=== PATIENT | male | born 1975 | race Caucasian/White ===

== ENCOUNTER 2017-06-27 18:18 | Emergency (ER) | payer MEDICAID ==
--- NOTE | 2017-06-27 18:23 | EDPHY ---
H & P Time Seen by Provider: 06/27/17 18:19 HPI/ROS: 42 yo M presents c/o left sided abdominal pain since last night. No associated symptoms. He denies nausea, vomiting, diarrhea. No fever or chills. No chest pain and no shortness of breath. He has fmily hx of CAD, and he himself has a hx of elevated triglycerides. Review of systems As per HPI General no fever no chills no weakness HEENT no eye pain no eye discharge. No eye redness, no sore throat Respiratory no cough, no shortness of breath Cardiac no chest pain, no peripheral edema GI positive left-sided abdominal pain, no diarrhea, no constipation, no nausea, no vomiting no flank pain, no hematuria, no dysuria Musculoskeletal no myalgias, no joint pain Heme no easy bruising, no easy bleeding Endo no polyuria, no polydipsia Skin no rashes, no pruritus Neuro no syncope, no dizziness, no headaches Psych is no suicidal ideation, no homicidal ideation Past Medical/Surgical History: kidney stones hypertriglyceridemia no prior abdominal surgeries Family history Coronary artery disease-father Social History: Quit drinking alcohol 1 month ago Denies drug use Smoking Status: Former smoker Physical Exam: 42-year-old male alert and oriented no acute distress nontoxic appearance HEENT atraumatic normocephalic, extraocular muscles intact, anicteric Oropharynx negative for erythema negative exudate, tolerating her own secretions Neck supple no meningismus Lungs clear to auscultation bilaterally Heart regular rate and rhythm without murmur rub or gallop Abdomen nondistended normoactive bowel sounds , left upper middle and lower quadrant tenderness to palpation, no guarding no rebound no pulsatile mass Back no CVA tenderness, no step-offs, no spinal tenderness Extremities no cyanosis clubbing or edema Neuro alert and oriented, no focal deficits Constitutional: Initial Vital Signs Temperature (C) 36.6 C 06/27/17 18:26 Heart Rate 56 L 06/27/17 18:26 Respiratory Rate 18 06/27/17 18:26 Blood Pressure 150/80 H 06/27/17 18:26 O2 Sat (%) 97 06/27/17 18:26 O2 Delivery Mode Room Air Allergies/Adverse Reactions: venom-honey bee [bee venom (honey bee)] Allergy (Severe, Verified 07/20/16 16:46 ) Swelling/neck,face,throat Home Medications: Medication Instructions Recorded NK [No Known Home Meds] 06/27/17 Medical Decision Making - Diagnostics Imaging Results: Imaging Impressions Abdomen CT 06/27/17 18:39 Impression: 1. Mild haziness around the pancreatic tail suggestive of mild pancreatitis 2. No CT evidence of appendicitis, abscess or diverticulitis. 3. Nonobstructive 2 mm calculus upper pole right kidney. Findings discussed with Rashida Alvarado MD at 20:10 hour, 06/27/2017. ED Course/Re-evaluation: Pt seen and evaluted for left sided abdominal pain. 12 lead EKG: Indication: [left upper quadrant abdominal pain] Rhythm: [sinus bradycardia] Gobler: [right axis deviation] Intervals: [normal] QRS: [normal] ST segments: [none] INTERPRETATION: [sinus bradycardia] The 12 lead EKG was interpreted by myself. CBC, CMP. lipase all wnl UA nml troponin neg ct scan with haziness at pancreatic tail, c/w pancreatitis Imp Mild pancreatitis- ie tolerating po, no lipase elevation, no WBC elevation Unknown etiology, pt with high triglycerides in the past, but only up to 400, generally over 800 is associated with pancratitis. Plan Home Bowel rest Per utd, may begin low residue, low fat, soft diet Advise follow up with pcp Dr Lynn in [place] Also advise return for fever, vomiting, or severe pain. Pt refusing pain medicines in ER or for home. Differential Diagnosis: Gastritis, peptic ulcer disease, diverticulitis, kidney stone, cholecystitis pancreatitis - Data Points Laboratory Results: Laboratory Results 06/27/17 18:50 06/27/17 18:50 06/27/17 06/27/17 06/27/17 20:10 18:50 18:50 WBC 8.93 10^3/uL 10^3/uL (3.80-9.50) RBC 5.24 10^6/uL 10^6/uL (4.40-6.38) Hgb 15.5 g/dL g/dL (13.7-17.5) Hct 42.8 % % (40.0-51.0) MCV 81.7 fL fL (81.5-99.8) MCH 29.6 pg pg (27.9-34.1) MCHC 36.2 g/dL g/dL (32.4-36.7) RDW 12.5 % % (11.5-15.2) Plt Count 221 10^3/uL 10^3/uL (150-400) MPV 11.7 fL fL (8.7-11.7) Neut % (Auto) 78.2 % H % (39.3-74.2) Lymph % (Auto) 16.3 % % (15.0-45.0) [place] % (Auto) 4.8 % % (4.5-13.0) Eos % (Auto) 0.2 % L % (0.6-7.6) Baso % (Auto) 0.3 % % (0.3-1.7) Nucleat RBC Rel Count 0.0 % % (0.0-0.2) Absolute Neuts (auto) 6.97 10^3/uL H 10^3/uL (1.70-6.50) Absolute Lymphs (auto) 1.46 10^3/uL 10^3/uL (1.00-3.00) Absolute Monos (auto) 0.43 10^3/uL 10^3/uL (0.30-0.80) Absolute Eos (auto) 0.02 10^3/uL L 10^3/uL (0.03-0.40) Absolute Basos (auto) 0.03 10^3/uL 10^3/uL (0.02-0.10) Absolute Nucleated RBC 0.00 10^3/uL 10^3/uL (0-0.01) Immature Gran % 0.2 % % (0.0-1.1) Immature Gran # 0.02 10^3/uL 10^3/uL (0.00-0.10) Sodium 140 mEq/L mEq/L (134-144) Potassium 4.2 mEq/L mEq/L (3.5-5.2) Chloride 103 mEq/L mEq/L (97-110) Carbon Dioxide 23 mEq/l mEq/l (22-31) Anion Gap 14 mEq/L mEq/L (8-16) BUN 13 mg/dL mg/dL (7-23) Creatinine 0.7 mg/dL mg/dL (0.7-1.3) Estimated GFR > 60 Glucose 90 mg/dL mg/dL (70-100) Calcium 9.7 mg/dL mg/dL (8.5-10.4) Total Bilirubin 0.8 mg/dL mg/dL (0.1-1.4) AST 21 IU/L IU/L (17-59) ALT 54 IU/L IU/L (21-72) Alkaline Phosphatase 55 IU/L IU/L (38-126) Troponin I Total Protein 7.1 g/dL g/dL (6.3-8.2) Albumin 4.5 g/dL g/dL (3.5-5.0) Lipase 121 IU/L IU/L (23-300) Urine Color YELLOW Urine Appearance CLEAR Urine pH 7.5 (5.0-7.5) Ur Specific [place] 1.010 (1.002-1.030) Urine Protein NEGATIVE (NEGATIVE) Urine Ketones 1+ H (NEGATIVE) Urine Blood NEGATIVE (NEGATIVE) Urine Nitrate NEGATIVE (NEGATIVE) Urine Bilirubin NEGATIVE (NEGATIVE) Urine Urobilinogen 0.2 EU EU (0.2-1.0) Ur Leukocyte Esterase NEGATIVE (NEGATIVE) Urine Glucose NEGATIVE (NEGATIVE) 06/27/17 18:50 WBC RBC Hgb Hct MCV MCH MCHC RDW Plt Count MPV Neut % (Auto) Lymph % (Auto) [place] % (Auto) Eos % (Auto) Baso % (Auto) Nucleat RBC Rel Count Absolute Neuts (auto) Absolute Lymphs (auto) Absolute Monos (auto) Absolute Eos (auto) Absolute Basos (auto) Absolute Nucleated RBC Immature Gran % Immature Gran # Sodium Potassium Chloride Carbon Dioxide Anion Gap BUN Creatinine Estimated GFR Glucose Calcium Total Bilirubin AST ALT Alkaline Phosphatase Troponin I < 0.012 ng/mL ng/mL (0.000-0.034) Total Protein Albumin Lipase Urine Color Urine Appearance Urine pH Ur Specific [place] Urine Protein Urine Ketones Urine Blood Urine Nitrate Urine Bilirubin Urine Urobilinogen Ur Leukocyte Esterase Urine Glucose Medications Given: Discontinued Medications Sodium Chloride (Ns) 1,000 mls @ 0 mls/hr IV ONCE ONE PRN Reason: Wide Open Stop: 06/27/17 18:51 Last Admin: 06/27/17 18:50 Dose: 1,000 mls Departure - Departure Disposition: Home, Routine, Self-Care Clinical Impression: Pancreatitis Condition: Good Instructions: Pancreatitis (ED) Referrals: NONE *PRIMARY CARE P,. [Primary Care Provider] - As per Instructions
[2017-06-27] MEDS: NS 1,000 ML IV ONE (18:50)
[2017-06-27] MEDS ORDERED: IOPAMIDOL (ISOVUE-300) 100 ML BTL ONE (18:54)
[2017-06-27 18:59] LABS: % IMMATURE GRANULYOCYTES 0.2 % (0.0-1.1); ABSOLUTE IMMATURE GRANULOCYTES 0.02 10^3/uL (0.00-0.10); ADD DIFF? NO; ADD MORPH? NO; ADD SCAN? NO; ATYPICAL LYMPHOCYTE FLAG 0 (0-99); FRAGMENT RBC FLAG 0 (0-99); HEMATOCRIT 42.8 % (40.0-51.0); HEMOGLOBIN 15.5 g/dL (13.7-17.5); LEFT SHIFT FLG 0 (0-99); LIPEMIA HEMOLYSIS FLAG 90 (0-99); MEAN CELL HEMOGLOBIN 29.6 pg (27.9-34.1); MEAN CELL HEMOGLOBIN CONCENTR. 36.2 g/dL (32.4-36.7); MEAN CELL VOLUME 81.7 fL (81.5-99.8); MEAN PLATELET VOLUME 11.7 fL (8.7-11.7); PLATELET CLUMPS FLAG 10 (0-99); PLATELET COUNT 221 10^3/uL (150-400); RED BLOOD CELL COUNT 5.24 10^6/uL (4.40-6.38); RED CELL DISTRIBUTION WIDTH 12.5 % (11.5-15.2)
--- NOTE | 2017-06-27 19:01 | CPEKG ---
Heart Rate: 49 RR Interval: 1224 P-R Interval: 148 QRSD Interval: 104 QT Interval: 444 QTC Interval: 401 P Dwight: 52 QRS Dwight: 104 T Wave Dwight: 63 EKG Severity - BORDERLINE ECG - EKG Impression: SINUS BRADYCARDIA EKG Impression: PROBABLE LEFT ATRIAL ABNORMALITY EKG Impression: RIGHT AXIS DEVIATION Electronically Signed By: Chad Smiley 29-Jun-2017 20:16:19
[2017-06-27 19:09] LABS: ALANINE AMINOTRANSFERASE 54 IU/L (21-72); ALBUMIN 4.5 g/dL (3.5-5.0); ALKALINE PHOSPHATASE 55 IU/L (38-126); ANION GAP 14 mEq/L (8-16); ASPARTATE AMINOTRANSFERASE 21 IU/L (17-59); BILIRUBIN,TOTAL 0.8 mg/dL (0.1-1.4); CALCIUM 9.7 mg/dL (8.5-10.4); CARBON DIOXIDE 23 mEq/l (22-31); CHLORIDE 103 mEq/L (97-110); CREATININE 0.7 mg/dL (0.7-1.3); GLOMERULAR FILTRATION RATE > 60; GLUCOSE 90 mg/dL (70-100); POTASSIUM 4.2 mEq/L (3.5-5.2); SODIUM 140 mEq/L (134-144); TOTAL PROTEIN 7.1 g/dL (6.3-8.2)
[2017-06-27 20:16] VITALS: TEMP 98.6
[2017-06-27 20:21] LABS: COLOR YELLOW; LEUKOCYTE ESTERASE,URINE NEGATIVE (NEGATIVE); NITRITE,URINE NEGATIVE (NEGATIVE); PH,URINE 7.5 (5.0-7.5)
[2017-06-27 20:34] VITALS: BP 132/75; PULSE 49; RESP 14; O2SAT 96
== END 2017-06-27 20:45 | disposition home or self-care (01) ==
LOC: CED 18:18
DX: K85.90 Acute pancreatitis without necrosis or infection, unspecified (principal); Z87.891 Personal history of nicotine dependence
CPT/HCPCS: 74177-PO; 80053-PO; 81003-PO; 83690-PO; 84484-PO; 85025-PO; Q9967